=== PATIENT | female | born 1985 | race Hispanic/Latino ===

== ENCOUNTER 2017-02-04 07:15 | Inpatient (IN) | payer OTHER ==
--- NOTE | 2017-02-01 15:06 | PCM.ANEPRE ---
Anesthesia Pre-Op Review Reason for Review: BMI 54 Anesthesia Recommendations: Proceed with Procedure (if no other changes in health, wt, etc) Additional Comments 31 yo with BMI 54 for repeat c/s 02/[address] Laurent and Cooper assisting. Prior c/s here 12/24/11 with BMI 51.2. Pt had labor epidural at that time without apparent problems, then SAB for c/s without apparent problems. Depth of epidural was 10cm. course has has had mild gestational DM, otherwise ok. Discussed with Dr Laurent and Dr Weinberg, who is scheduled on SVOB that day. Chart Reviewed by: Santiago Burrows MD, MD Feb 01, 2017 15:06
[~2017-02-04] VITALS: Ht 157.5 cm; Wt 133.8 kg
[~2017-02-04 07:15] MED LIST: METF-487 PO; METF-488 PO; PNV1TABL57 PO
[2017-02-10] MEDS ORDERED: Oxytocin 30 Units/500 mL LR 30 UNITS in IV Premix 1 EACH IV SCH (23:40)
[2017-02-11] MEDS ORDERED: Oxytocin 10 Unit/mL Inj IM PRN ×2 (06:00→09:35)
[2017-02-11] MEDS ORDERED: Hemorrhage Kit, Post Partum XX ONE ×2 (06:00→09:35)
[2017-02-11] MEDS ORDERED: Carboprost 250 mCg/mL Inj IM PRN ×2 (06:00→09:35)
[2017-02-11] MEDS ORDERED: Methylergonovine 0.2 mg/mL Inj IM PRN ×2 (06:00→09:35)
[2017-02-11] MEDS ORDERED: Lactated Ringer's 1,000 ML IV SCH ×2 (06:00→09:32)
[2017-02-11] MEDS ORDERED: Sodium Citrate-Citric Acid 15 mL Solution PO SCH (06:00)
[2017-02-11 06:36] LABS: Mean Corpuscular Hemoglobin 26.9 pg (27.0-35.0); Mean Corpuscular Volume 80.3 fL (81-100)
[2017-02-11] MEDS ORDERED: LEVO150T5 PO (06:56)
--- NOTE | 2017-02-11 07:22 | PCM.HPANE ---
Patient Data Surgeon Admitting Provider:Ramana Laurent MD Attending Provider:Ramana Laurent MD Primary Care Physician:Brennan Other Provider:Harriett Varghese Anesthesia Reason for Visit Previous , Desires Sterility PREVIOUS , DESIRES STERILITY Ht/WT & BMI Body Mass Index Allergies Coded Allergies: No Known Allergies (Unverified Allergy, 12/11/11) Past Anesthesia History Anesthesia History: Denies:: Abnormal Airway, Anesthesia Reactions, Difficult Intubation, Fam Anesthesia Reaction, Fam Malignant Hypertherm, Malignant Hyperthermia Diabetes History Hx Diabetes?: No Medications Hypertension Medication: No Home Meds Incl Beta Angel: No Reported Medications Levothyroxine 150 Mcg Oxcodt211 Mcg PO DAILY Ref 0 02/11/17 PNV CMB#95/FERROUS FUMARATE/FA-Expunged Drug, (-Expunged Drug, Do Not Renew!)1 Each Tablet1 Each PO DAILY 12/24/11 Discontinued Reported Medications Metformin-Expunged Drug, Do Not Renew! 500 Mg Tab.er.35264 Mg PO ACHS 12/24/11 Metformin-Expunged Drug, Do Not Renew! 1,000 Mg Tab.er.241,000 Mg PO AM 12/24/11 History History of ENT Problems?: No HEENT History: Denies:: Abnormal Airway Cataracts Difficult Intubation Dysphagia Glaucoma Hearing Problem Sinus Problem TMJ Denture Type: None Teeth Condition: Within Normal Limits Hx of Heart Problems?: No Cardiovascular History: Denies:: AICD Abdominal Aortic Aneurism Atrial Fibrillation Cardiac Surgery Chest Pain Congestive Heart Failure Coronary Artery Disease Edema Heart Murmur Hypertension Irregular Heartbeat Pacemaker Peripheral Vascular Rheumatic Fever Thrombophlebitis Valvular Heart Disease Hx of Respiratory Problem?: No Respiratory History: Denies:: Asthma COPD Chest Surgery Cough Dyspnea Emphysema Hemoptysis Oxygen Administration Pneumonia Pulmonary Embolism Tuberculosis Use of C-PAP Machine Use of Inhalers / NEBS Hx Neurologic Problems?: No Hx of GI Problems?: Yes Gastrointestinal History: Positive for:: Heartburn Hx of Problems?: No Female Hx: Positive for:: Currently Hx Musculoskeletal Problems?: No Hx of Psycho/Social Problems?: No Hx Surgeries?: Yes (cs) Hx Substance Use: No Smoking Status: Never Smoker Stop/Bang Treated for Sleep Apnea?: No Do You Have a CPAP Machine?: No RENAE Risk Assessment: Low Risk, <3 Yes Risk Assessment Category Category 1A: Patient has history of documented sleep apnea, and HAS NOT received any narcotic, sedative or anesthesia administration during this stay. Category 1B: Patient has history of documented sleep apnea, and HAS received any narcotic , sedative or anesthesia administration during this stay Category 2: Patient has SUSPECTED Obstructive Sleep Apnea, and HAS received any narcotic , sedative or anesthesia administration during this stay. Category 3: Patient has SUSPECTED Obstructive Sleep Apnea and HAS NOT received narcotic, sedative or anesthesia administration during this stay. Category 4: Outpatient in Procedural Areas with known sleep apnea or who screen positive for High Risk via the STOP/BANG questionnaire. Exam Exam General Appearance: Oriented X3 HEENT/AIRWAY: MP 2 Lungs: Normal Air Movement Heart: Regular Rate/Rhythm Meds/Labs/Diagnostics Admission Meds Current Medications Lactated Ringer's (Lr) 1,000 ml @ 125 mls/hr Q8H IV Last administered on t 06:34; Start 02/11/17 at 06:00; Stop 02/11/17 at 13:59 Labs Test 02/11/17 06:15 White Blood Count 10.5th/mm3 (3.8-10.1) Red Blood Count 4.46mil/mm3 (3.90-5.20) Hemoglobin 12.0g/dL (12.0-15.6) Hematocrit 35.8% (35.0-46.0) Mean Corpuscular Volume 80.3fL (81-100) Mean Corpuscular Hemoglobin 26.9pg (27.0-35.0) Mean Corpuscular Hemoglobin Concent 33.5% (32.0-37.0) Red Cell Distribution Width 14.9% (12.3-15.4) Platelet Count 210bil/L (150-400) Plan Impression Patient chart reviewed, patient interviewed and anesthestic plan with risks, benefits, and alternatives discussed, and informed consent obtained. ASA Physical Status: ASA4 Life Threatening Anesthetic Plan: SAB Bene/Risks/Altern/Consents: Yes HP Complete Prior to Induction: Yes Bryce Clay MD Feb 11, 2017 07:22
[2017-02-11] MEDS ORDERED: Morphine PF 1 mg/mL 10 mL Inj EPIDURAL ONE (08:10)
[2017-02-11] MEDS ORDERED: Atropine 0.4 mg/mL Inj IV PRN (08:10)
[2017-02-11] MEDS ORDERED: fentaNYL-PF 50 mCg/mL 2 mL Inj IVPUSH PRN (08:10)
[2017-02-11] MEDS ORDERED: EPHEDrine Sulfate 50 mg/mL Inj IVPUSH PRN (08:10)
[2017-02-11] MEDS ORDERED: Phenylephrine/NS-PF 100 mCg/mL 5 mL Syringe IVPUSH PRN (08:10)
[2017-02-11] MEDS ORDERED: Sodium Chloride LOK Flush 10 mL Syringe IVFLUSH PRN (09:35)
[2017-02-11] MEDS ORDERED: Oxytocin 30 Units/500 mL LR 30 UNITS in IV Premix 1 EACH IV PRN (09:35)
[2017-02-11] MEDS ORDERED: Acetaminophen IV 1,000 MG in IV Premix 1 EACH IV PRN (09:35)
[2017-02-11] MEDS ORDERED: HYDROcodone-APAP 5-325 mg Tablet PO PRN (09:35)
[2017-02-11] MEDS ORDERED: LANOlin HPA 7 Gm Ointment TOPICAL PRN (09:35)
[2017-02-11] MEDS ORDERED: diphenhydrAMINE 50 mg Capsule PO PRN (09:35)
[2017-02-11] MEDS ORDERED: hydrOXYzine Pamoate 25 mg Capsule PO PRN (09:35)
[2017-02-11] MEDS ORDERED: Oxytocin 10 Unit/mL Inj ONE (10:02)
[2017-02-11] MEDS ORDERED: MetoCLOpramide 5 mg/mL 2 mL Inj ONE (10:02)
[2017-02-11] MEDS ORDERED: Phenylephrine/NS 100 mCg/mL 10 mL Syringe IVPUSH ONE (10:02)
[2017-02-11] MEDS ORDERED: Ondansetron 2 mg/mL 2 mL Inj ONE (10:02)
[2017-02-11] MEDS ORDERED: Dexamethasone 4 mg/mL Inj ONE (10:02)
[2017-02-11] MEDS ORDERED: Bupivacaine-MPF 0.75% 30 mL Inj ONE (10:02)
[2017-02-11] MEDS ORDERED: Morphine PF 1 mg/mL 10 mL Inj ONE (10:02)
[2017-02-12] MEDS: oxyCODONE-Acetamin 5-325 mg Tablet PO PRN (05:36)
[2017-02-12 07:34] LABS: Mean Corpuscular Hemoglobin 27.1 pg (27.0-35.0); Mean Corpuscular Volume 80.2 fL (81-100)
--- NOTE | 2017-02-12 08:46 | PCM.OBCSEC ---
Delivery Date of Service Feb 11, 2017 Pre Procedure Diagnosis 1. Multip with prior hx of 2. Maternal obesity 3. GDM 4. Hypothyroidism 5. Unwanted fertility Post Procedure Diagnosis Same Procedure Primary low transverse with BTL Procedure: Repeat [employer] Supervisor Surgeon: Ramana Laurent MD Assistants: Sukh Gamboa MD Indication for Procedure Prior hx Findings Obstetrical Findings: Weight (2pd08vx) 1 minute (9) 10 minutes (9) Complications None Analgesia/Medications Obstetrical Anesthesia: Other (Spinal) Procedure Details Patient was taken to OR where spinal anesthesia performed. 3 grams of ancef given. Prep and drape as normal. Timeout done. Retentis drape applied. Prior incision site used. Incision carried to fascia. Fascia incised and this carried laterally each direction with enciso scissors. Fascia elevated with Kassi clamps. Underlying muscle dissected off with bovie. Hemostats used to enter abdomen and peritoneum. Care taken to avoid underlying tissue. Bladder blade applied. No bladder flap could be created due to scar tissue. Entered uterus above bladder reflection. Final entry with my fingers to avoid harming baby. Clear fluid. Bandage scissors used to open uterus further. Baby delivered easily. 30 sec. of delayed cord clamping performed. Clamped and cut. Handed to waiting nurse. Placenta removed and uterus cleaned...exteriorized. Marci clamps applied. Uterus closed using 1-0 chromic in a running locked fashion. No second layer needed. Pelvis irrigated. BTL performed in usual modified [place] technique. 1cm segment of each tube taken. Each cut end double ligated with 2-0 plain gut and cauterized. Uterus returned to pelvis. Incision and tubes looked great and were not bleeding. Muscle wall bleeder ligated. Muscle closed with 2-0 chromic. Fascia closed with 0-vicryl in a running fashion. Subcutaneous tissue closed with 2-0 plain gut in a running fashion. Irrigated the subcutaneous tissue. Closed with yoko. Pressure dressing applied. Counts correct x 3. No other complications. Minimal scar tissue noted overall. Specimen Tubes Input/Output Intake, IV Amount: 1700 Catheters: Urethral 2 Way Ruth Blood Loss & Administration Estimated Blood Loss: 700 Blood Administration during patton: No Post Operative Plan Post delivery Condition: Mom stable VTE Prophylaxis: SCDs Ramana Laurent MD Feb 12, 2017 08:46
--- NOTE | 2017-02-12 08:47 | PCM.PNOBPP ---
Subjective Date of Service Feb 12, 2017 Post : Repeat Ceserean Delivery Lochia: Normal Pain Management: PO pain meds Gastrointestinal: Good Appetite Postop Activity: Ambulating Independently Labs Laboratory Tests 02/12/17 07:25: White Blood Count 16.7, Red Blood Count 4.39, Hemoglobin 11.9, Hematocrit 35.2, Mean Corpuscular Volume 80.2, Mean Corpuscular Hemoglobin 27.1, Mean Corpuscular Hemoglobin Concent 33.8, Red Cell Distribution Width 14.8, Platelet Count 236 Exam Vital Signs Vital Signs: VS reviewed, stable Exam Abdomen: Fundus firm Lungs: Clear to Auscultation Heart: Exam Unremarkable General: Alert, Oriented X3 Surgical Wound : Incision General Appearence: Gloria Dressing & Drainage Status: Dry & Intact OB Post Assessment/Plan Problems: (1) Status post repeat low transverse section Status: Acute ICD Code: Z98.891 Pain Evaluation: Adequate Pain Control Post plan: Continue routine post care, Discharge home tomorrow Ramana Laurent MD Feb 12, 2017 08:47
--- NOTE | 2017-02-12 15:25 | PATH ---
SURGICAL PATHOLOGY Attending Physician:Ramana Laurent MD CASE STATUS: Signed Out PATIENT NAME: CHAI MA PID: [id number] : 1985 DATE COLLECTED:02/11/2017 15:09 SPECIMEN: 1: Fallopian Tube, Biopsy 2: Fallopian Tube, Biopsy CLINICAL HISTORY: 1. LEFT FALLOPIAN TUBE 2. RIGHT FALLOPIAN TUBE FINAL DIAGNOSIS: 1. 2. SEGMENTS OF LEFT AND RIGHT FALLOPIAN TUBES (STERILIZATION PROCEDURE): NO SIGNIFICANT PATHOLOGIC CHANGE. ICD10 Z30.2 GROSS DESCRIPTION: 1. Received in formalin, labeled with the patient' s name and "L fallopian tube", is one pink-pierce, cylindrical fragment of tissue measuring 1.1 x 0.5 x 0.5 cm. The fragment is trisected and totally submitted in cassette 1A. 2. Received in formalin, labeled with the patient' s name and "right fallopian tube", is one pink-pierce, cylindrical tissue fragment measuring 1.4 x 0.7 x 0.7 cm. The fragment is trisected and totally submitted in case 2A. ([id number]) MICRO DESCRIPTION: See diagnosis. ICD-9 CODES: CPT CODES: 1: 26039 2: 11854 Electronically Signed Out Ramon Alejandro MD [facility] [address], [place] [address] Technical component performed at [facility], [facility] [address], [place], [address]
[2017-02-13] MEDS: oxyCODONE-Acetamin 5-325 mg Tablet PO PRN ×5 (01:39→17:05)
--- NOTE | 2017-02-13 09:42 | PCM.DC.OB ---
Obstetrical Discharge Summary Date of Service Feb 13, 2017 Date of hospital admission Feb 11, 2017 at 05:31 Date of Discharge: Feb 13, 2017 Providers Admitting Physician: Ramana Laurent MD Primary Care Physician: Nopcp Attending Physician: Ramana Laurent MD Problems: (1) Status post repeat low transverse section Status: Acute ICD Code: Z98.891 Consultations None Invasive procedures Repeat LTCS and BTL Date of Procedure: Feb 11, 2017 Hospital Course: Patient presented for her repeat c/s and this went well. Recovered in excellent fashion. Levothyroxine (Levothyroxine) 150 Mcg Tablet 150 MCG PO DAILY (Reported) PNV CMB#95/FERROUS FUMARATE/FA-Expunged Drug, (-Expunged Drug, Do Not Renew!) 1 Each Tablet 1 EACH PO DAILY (Reported) Discontinued Medications Metformin-Expunged Drug, Do Not Renew! (Metformin-Expunged Drug, Do Not Renew!) 1,000 Mg Tab.er.24 1,000 MG PO AM (Reported) Metformin-Expunged Drug, Do Not Renew! (Metformin-Expunged Drug, Do Not Renew!) 500 Mg Tab.er.24 500 MG PO ACHS (Reported) Follow-up plan See me in two weeks. Gloria out in clinic in two days. Discharge Diet: No restrictions Discharge Activity-General: Pelvic Rest for 6 weeks, Try not to overdue, Be up and about, Balance rest and activity, Activity as pain allows, Activity as energy allows, No lifting >15 pounds for 2 weeks Ramana Laurent MD Feb 13, 2017 09:42
--- NOTE | 2017-02-13 09:45 | PCM.DIOB ---
Obstetrical Disch Instruction Date of Service: Feb 13, 2017 Dates of Hospitalization Date of Hospital Admission Feb 11, 2017 at 05:31 Providers Admitting Physician: Ramana Laurent MD Primary Care Physician: Nopcp Attending Physician: Ramana Laurent MD Discharge Diagnosis Post Operative diagnosis Same Problems: (1) Status post repeat low transverse section Status: Acute ICD Code: Z98.891 Diet Discharge Diet: No restrictions Activity Discharge Activity-General: Pelvic Rest for 6 weeks, Try not to overdue, Be up and about, Balance rest and activity, Activity as pain allows, No lifting >15 pounds for 2 weeks Dressing and Incisional Care Dressing Care: Other (Gloria out in clinic on Saturday. Allow steri strips to fall off after that. ) Hygiene: May shower, DO NOT soak incision under water, NO bathtub, hot tub or whirlpool Follow Up Plan Follow Up Plan See nurse for staple removal in clinic in two days. See me in two weeks. Follow-up Provider (F9): Ramaan Laurent MD Follow-up appointment: Weeks (2) Call your provider for: Fever or Chills, Shortness of breath, Heavy vaginal bleeding, Heavy bleeding, Epigastric pain, Excessive constipation, Red painful breasts Ramana Laurent MD Feb 13, 2017 09:45
[2017-02-13] MEDS ORDERED: IBUP800T28 PO (09:46)
[2017-02-13] MEDS ORDERED: DOCU-41 PO (09:46)
[2017-02-13] MEDS ORDERED: OXYC1TAB24 PO (09:46)
[2017-02-13 13:41] VITALS: BP 102/44; PULSE 74; RESP 20
== END 2017-02-13 17:20 | disposition home or self-care (01) | DRG 765 ==
LOC: EDSTATUS 07:15 → FBC 02-11 05:31
PROVIDERS: ADMIT Family Medicine; ATTEND Family Medicine
PROC: 10D00Z1 Extraction of Products of Conception, Low, Open Approach (ICD-10-PCS; principal; 2017-02-12)
PROC: 0UB70ZZ Excision of Bilateral Fallopian Tubes, Open Approach (ICD-10-PCS; 2017-02-12)
DX: O34.211 Maternal care for low transverse scar from previous cesarean delivery (principal); Z68.43 Body mass index [BMI] 50.0-59.9, adult; O99.214 Obesity complicating childbirth; E66.9 Obesity, unspecified; O99.284 Endocrine, nutritional and metabolic diseases complicating childbirth; E03.9 Hypothyroidism, unspecified; Z30.2 Encounter for sterilization; O69.81X0 Labor and delivery complicated by cord around neck, without compression, not applicable or unspecified; Z3A.39 39 weeks gestation of pregnancy; Z37.0 Single live birth